=== PATIENT | male | born 1950 | race Caucasian/White ===

== ENCOUNTER → 2019-02-06 | Outpatient (CLI) | payer MEDICARE ==
[~2019-02-06] MED LIST: Cyclobenzaprine5 MG PO; IBUP600 PO; Norco 5-325 Ta1 EACH PO
[2019-02-06 19:29] LABS: BASOPHILS ABSOLUTE AUTO 0.07 K/mm3 (0.00-0.23); BASOPHILS PERCENT AUTO 1 % (0-2); EOSINOPHILS ABSOLUTE AUTO 0.28 K/mm3 (0.00-0.68); EOSINOPHILS PERCENT AUTO 2 % (0-6); Hemoglobin 15.7 g/dL (13.5-17.5); IMMATURE GRAN ABSOLUTE AUTO 0.05 K/mm3 (0.00-0.10); IMMATURE GRAN PERCENT AUTO 0 % (0-1); LYMPHOCYTES PERCENT AUTO 16 % (21-46); MONOCYTES ABSOLUTE AUTO 1.26 K/mm3 (0.16-1.47); MONOCYTES PERCENT AUTO 9 % (4-13); Mean Corpuscular HGB 32.3 pg (26.0-34.0); Mean Corpuscular HGB Conc 33.4 g/dL (31.5-36.5); Mean Corpuscular Volume 97 fL (80-100); Mean Platelet Volume 12.2 fL (9.1-12.4); NEUTROPHILS PERCENT AUTO 72 % (41-73); Platelet Count 306 K/mm3 (150-400); RDW Coefficient Variation 13.3 % (11.7-14.2); RDW Standard Deviation 47.7 fL (35.1-46.3); Red Blood Cell Count 4.86 M/mm3 (4.30-5.90); White Blood Cell Count 13.96 K/mm3 (4.00-11.30)
[2019-02-06 19:40] LABS: Alanine Aminotransfer (ALT/SGP 30 U/L (12-78); Albumin, Blood 3.4 g/dL (3.4-5.0); Albumin/Globulin Ratio 0.6 (0.8-1.8); Alk Phos 99 U/L (50-136); Anion Gap 7 mmol/L (6-16); Aspartate Aminotrans (AST/SGOT 32 U/L (12-37); Bilirubin, Total 0.5 mg/dL (0.1-1.0); Blood Urea Nitrogen 20 mg/dL (8-24); Bun/Creatinine Ratio 23.6 (12.0-20.0); CO2, Blood 24 mmol/L (21-32); Calcium, Blood 9.1 mg/dL (8.5-10.1); Chloride, Blood 107 mmol/L (98-108); Creatinine, Blood 0.85 mg/dL (0.60-1.20); Globulin, Blood 5.4 g/dL (2.2-4.0); Glomerular Filtration Rate >60 (60-); Glucose, Blood 104 mg/dL (70-99); Sodium, Blood 138 mmol/L (136-145); Total Protein, Blood 8.8 g/dL (6.4-8.2); Troponin I <0.015 ng/mL (0.000-0.040)
== END | disposition home or self-care (01) ==
LOC: LAB 18:17 → LAB SHORT 18:17
PROVIDERS: Nurse Practitioner
DX: J44.1 Chronic obstructive pulmonary disease with (acute) exacerbation (principal); R06.09 Other forms of dyspnea; R07.9 Chest pain, unspecified
CPT/HCPCS: 80053; 84484; 85025; 85379

== ENCOUNTER 2019-03-16 21:35 | Inpatient (IN) | payer MEDICARE ==
[~2019-03-16] VITALS: Ht 193 cm; Wt 61.2 kg
[2019-03-16 22:06] LABS: BASOPHILS ABSOLUTE AUTO 0.09 K/mm3 (0.00-0.23); BASOPHILS PERCENT AUTO 1 % (0-2); EOSINOPHILS ABSOLUTE AUTO 0.11 K/mm3 (0.00-0.68); EOSINOPHILS PERCENT AUTO 1 % (0-6); Hematocrit 46.3 % (37.0-53.0); Hemoglobin 14.9 g/dL (13.5-17.5); IMMATURE GRAN ABSOLUTE AUTO 0.08 K/mm3 (0.00-0.10); IMMATURE GRAN PERCENT AUTO 1 % (0-1); LYMPHOCYTES ABSOLUTE AUTO 3.36 K/mm3 (0.84-5.20); LYMPHOCYTES PERCENT AUTO 24 % (21-46); MONOCYTES PERCENT AUTO 9 % (4-13); Mean Corpuscular HGB 31.6 pg (26.0-34.0); Mean Corpuscular HGB Conc 32.2 g/dL (31.5-36.5); Mean Corpuscular Volume 98 fL (80-100); NEUTROPHILS PERCENT AUTO 65 % (41-73); RDW Coefficient Variation 14.4 % (11.7-14.2); RDW Standard Deviation 52.2 fL (35.1-46.3); Red Blood Cell Count 4.72 M/mm3 (4.30-5.90); White Blood Cell Count 13.94 K/mm3 (4.00-11.30)
[2019-03-16 22:07] LABS: Platelet Count 311 K/mm3 (150-400)
[2019-03-16 22:14] LABS: Alanine Aminotransfer (ALT/SGP 57 U/L (12-78); Albumin, Blood 3.5 g/dL (3.4-5.0); Albumin/Globulin Ratio 0.7 (0.8-1.8); Alk Phos 97 U/L (50-136); Anion Gap 9 mmol/L (6-16); Aspartate Aminotrans (AST/SGOT 61 U/L (12-37); Bilirubin, Total 0.4 mg/dL (0.1-1.0); Blood Urea Nitrogen 18 mg/dL (8-24); Bun/Creatinine Ratio 20.2 (12.0-20.0); CO2, Blood 19 mmol/L (21-32); Calcium, Blood 8.1 mg/dL (8.5-10.1); Chloride, Blood 109 mmol/L (98-108); Creatinine, Blood 0.89 mg/dL (0.60-1.20); Glomerular Filtration Rate >60 (60-); Glucose, Blood 98 mg/dL (70-99); Potassium, Blood 4.5 mmol/L (3.5-5.5); Sodium, Blood 137 mmol/L (136-145); Total Protein, Blood 8.5 g/dL (6.4-8.2)
[2019-03-16 22:19] LABS: Ethanol (Alcohol), Blood, Med 304 mg/dL
[2019-03-16 22:26] LABS: Source, Urine Catheter
[2019-03-16 22:30] LABS: Appearance, Urine Clear (Clear); Bilirubin, Urine Neg (Neg); Blood, Urine 2+ (Neg); Color, Urine Yellow (P-Yellow); Glucose Qualitative, Urine Neg (Neg); Ketones, Urine Neg (Neg); Leukocyte Esterase, Urine Neg (Neg); Nitrite, Urine Neg (Neg); Protein, Urine Neg (Neg); Urobilinogen, Urine NORM (Normal)
[2019-03-16 22:35] LABS: Bacteria Not Seen /hpf; Red Blood Cells, Urine 0-2 /hpf (0-2); Squamous Epithelial Cells Not Seen /hpf (Few); White Blood Cells, Urine 0-2 /hpf (0-5)
[2019-03-16 22:43] LABS: International Normalized Ratio 0.96; Prothrombin Time Results 10.3 Sec (9.7-11.5)
[2019-03-16 22:52] LABS: U Amphetamine Screen Not Detected; U Barbituate Screen Not Detected; U Benzodiazapine Screen Not Detected; U Buprenorphine Screen Not Detected; U Cannabinoids Screen DETECTED; U Cocaine Screen Not Detected; U Methadone Screen Not Detected; U Methamphetamine Screen Not Detected; U Opiates Screen Not Detected; U Oxycodone Screen Not Detected; U Propoxyphene Screen Not Detected
--- NOTE | 2019-03-17 03:23 | NUR ---
PT TO ICU 10 FROM ED. PT ARRIVED INTUBATED, VENT SETTINGS AC 16/450/5/40%, SEDATED ON 10 MCG/KG/MIN PROPOFOL. NS@100ML/HR ON STANDBY WHILE BANANA BAG INFUSING. PT PLACED IN BILATERAL UPPER SOFT WRIST RESTRAINTS TO PREVENT ACCIDENTAL SELF-EXTUBATION. PT WITHDRAWS FROM PAINFUL STIMULI, PT FAILS TO FOLLOW COMMANDS. ATTEMPTS TO SIT UP IN BED AND PULLS ON RESTRAINTS WITH EYES CLOSED. PT HYPOTHERMIC ON ARRIVAL WITH CORE TEMP 95 DEGREES (TEMP WHITLEY IN PLACE), MILEY HUGGER AND WARM BLANKETS PLACED ON PT-CURRENT TEMP 97 DEGREES. PT HYPOTENSIVE WITH MAP IN MID TO LOW 50'S, CALL TO DR. SANCHEZ TO START LEVOPHED THROUGH PERIPHERAL IV AT LOW DOSE. DR. SANCHEZ TO SEE PT WITHIN HOUR WITH POSSIBILITY OF PLACING CENTRAL LINE IF NEEDED. PT HAS ABRASION ON FACE AND RIGHT KNEE D/T FALL. SEE PICTURES IN CHART. SEE FULL ADMISSION ASSESSMENT
[2019-03-17 03:33] LABS: BASOPHILS ABSOLUTE AUTO 0.04 K/mm3 (0.00-0.23); BASOPHILS PERCENT AUTO 0 % (0-2); EOSINOPHILS ABSOLUTE AUTO 0.14 K/mm3 (0.00-0.68); EOSINOPHILS PERCENT AUTO 1 % (0-6); Hematocrit 39.3 % (37.0-53.0); Hemoglobin 12.6 g/dL (13.5-17.5); IMMATURE GRAN ABSOLUTE AUTO 0.06 K/mm3 (0.00-0.10); IMMATURE GRAN PERCENT AUTO 1 % (0-1); LYMPHOCYTES ABSOLUTE AUTO 3.08 K/mm3 (0.84-5.20); LYMPHOCYTES PERCENT AUTO 26 % (21-46); MONOCYTES ABSOLUTE AUTO 1.05 K/mm3 (0.16-1.47); MONOCYTES PERCENT AUTO 9 % (4-13); Mean Corpuscular HGB 31.6 pg (26.0-34.0); Mean Corpuscular HGB Conc 32.1 g/dL (31.5-36.5); Mean Corpuscular Volume 99 fL (80-100); Mean Platelet Volume 10.7 fL (9.1-12.4); NEUTROPHILS ABSOLUTE AUTO 7.58 K/mm3 (1.96-9.15); NEUTROPHILS PERCENT AUTO 63 % (41-73); Platelet Count 319 K/mm3 (150-400); RDW Coefficient Variation 14.4 % (11.7-14.2); RDW Standard Deviation 53.2 fL (35.1-46.3); Red Blood Cell Count 3.99 M/mm3 (4.30-5.90); White Blood Cell Count 11.95 K/mm3 (4.00-11.30)
[2019-03-17 03:54] LABS: Alanine Aminotransfer (ALT/SGP 43 U/L (12-78); Albumin, Blood 2.7 g/dL (3.4-5.0); Albumin/Globulin Ratio 0.7 (0.8-1.8); Alk Phos 79 U/L (50-136); Anion Gap 7 mmol/L (6-16); Aspartate Aminotrans (AST/SGOT 39 U/L (12-37); Bilirubin, Total 0.4 mg/dL (0.1-1.0); Blood Urea Nitrogen 17 mg/dL (8-24); Bun/Creatinine Ratio 17.8 (12.0-20.0); CO2, Blood 20 mmol/L (21-32); Calcium, Blood 7.3 mg/dL (8.5-10.1); Chloride, Blood 113 mmol/L (98-108); Creatinine, Blood 0.96 mg/dL (0.60-1.20); Globulin, Blood 3.9 g/dL (2.2-4.0); Glomerular Filtration Rate >60 (60-); Glucose, Blood 139 mg/dL (70-99); Potassium, Blood 3.9 mmol/L (3.5-5.5); Sodium, Blood 140 mmol/L (136-145); Total Protein, Blood 6.6 g/dL (6.4-8.2)
--- NOTE | 2019-03-17 06:31 | NUR ---
SHIFT SUMMARY PT REMAINS INTUBATED AND SEDATED. VENT SETTINGS 16/450/5/35%. PROPOFOL @ 40 MCG/KG/MIN. CENTRAL LINE PLACED TO START LEVOPHED D/T HYPOTENSION. LEVOPHED CURRENTLY INFUSING @7MCG/MIN. PT RCV'D 3LNS BOLUS D/T HYPOTENSION. PT SITS UPRIGHT IN BED AND THRASHES HEAD BACK AND FORTH AND PULLS VIOLENTLY ON RESTRAINTS. WHEN INADEQUATELY SEDATED. PT DOES NOT OPEN EYES OR FOLLOW COMMANDS. CURRENT TEMPERATURE 98.6, MILEY HUGGER REMOVED. [facility].
--- NOTE | 2019-03-17 08:00 | NUR ---
CARE OF PT ASSUMED: BEDSIDE REPORT TAKEN AT 0700. PT SEDATED ON PROPOFOL FOR MECH VENT. PT AWAKENS TO PAIN/NOXIOUS STIMULI; SITS STRAIGHT UP IN BED, PULLING ON RESTRAINTS HARD, DOES NOT FOLLOW DIRECTIONS OR TRACK W EYES. LEVOPHED AT 8MCG. PT CALM AND SLEEPING AFTER FENT 5OMCG IV.
--- NOTE | 2019-03-17 11:00 | NUR ---
DR DÍAZ IN AT 0900, FULL REPORT GIVEN. PRECEDEX GTT ORDERED AND TITRATED UP TO 0.7MCG. PROPOFOL GTT DECREASED TO 40MCG. LEVOPHED DECREASED TO 6MCG.
--- NOTE | 2019-03-17 13:00 | NUR ---
PT PLACED ON SPONT BREATHING TRIAL/PS OF [address] DÍAZ. PT TOLERATING WELL.
--- NOTE | 2019-03-17 14:00 | NUR ---
PROPOFOL PLACED ON STANDBY AND OG PLACED TO LIS IN PREPARATION FOR POSSIBLE EXTUBATION.
--- NOTE | 2019-03-17 15:15 | NUR ---
PT EXTUBATED AT 1515. PRECEDEX GTT OFF, LEVOPHED DECREASED TO 4MCG. PT AWAKE, ALERT, AND COOPERATIVE. RESTRAINTS DC'D AT THIS TIME. 3L O2 VIA N/C PLACED ON PT. SATS >93%. PT HAS VAGUE COMPLAINTS OF PAIN WHEN ASKED.
--- NOTE | 2019-03-17 19:39 | NUR ---
PT HAS DONE WELL OVERALL THIS SHIFT. PT PASSED BEDSIDE SWALLOW EVAL AT 1715 AND WAS GIVEN REGULAR ADULT DINNER TRAY WHICH HE DID WELL WITH. O2 WAS TAKEN OFF AT 1700, SATS REMAIN >92% ON RA. PT C/O NECK PAIN AND GENERALIZED ACHES D/T FALL. PT STATED THAT FENTANYL "SORTA" WORKED BUT DIDNT LAST LONG". PT REQUEST HIS REGULAR MEDS TO BE STARTED/ORDERED; THIS WAS PASSED ALONG TO ONCOMING RN. PT REQUESTED HIS MONEY FROM THE [facility] SAFE STATING TO ME, "THERE WAS JUST OVER 600 DOLLARS IN MY WALLET". SECURITY BROUGHT PT'S DO TO HIM WHICH PT PLACED IN HIS WALLET (AT BEDSIDE). PT WAS OFFERED THE OPTION OF KEEPING HIS DO IN SAFE UNTIL DISCHARGE; PT DECLINED THIS OFFER. LEVOPHED DECREASED TO 2MCG AT 1800.
[2019-03-17] MEDS ORDERED: TIOT18 INH (21:26)
[2019-03-17] MEDS ORDERED: BUDE6HFA INH (21:26)
[2019-03-17] MEDS ORDERED: ALBU3IS INH (21:27)
[2019-03-17] MEDS ORDERED: COMBIVENT RESPIM4 GM INH (21:28)
--- NOTE | 2019-03-17 23:09 | NUR ---
ASSUMED CARE OF PT, REPORT RCV'D FROM AYSE MANZO. PT ALERT AND ORIENTED X4, PLEASANT AND COOPERATIVE WITH CARE. WHITLEY REMOVED PER PT REQUEST, PT AMBULATES TO THE TOILET WITH SBA WITH NO DIFFICULTY. LEVOPHED PLACED ON STANDBY AT 1999, MAP REMAINS GREATER THAN 65. PT REPORTS WHEEZING AND REQUESTING HOME MEDS. HOME MEDS RESTARTED, RESPIRATORY THERAPY TO ROOM TO ADMINISTER BREATHING TX. PT ON 3L NC PRN. SEE FULL SHIFT SUMMARY
[2019-03-18 05:57] LABS: BASOPHILS ABSOLUTE AUTO 0.09 K/mm3 (0.00-0.23); BASOPHILS PERCENT AUTO 1 % (0-2); EOSINOPHILS ABSOLUTE AUTO 0.35 K/mm3 (0.00-0.68); EOSINOPHILS PERCENT AUTO 3 % (0-6); Hematocrit 38.8 % (37.0-53.0); Hemoglobin 12.4 g/dL (13.5-17.5); IMMATURE GRAN ABSOLUTE AUTO 0.06 K/mm3 (0.00-0.10); IMMATURE GRAN PERCENT AUTO 1 % (0-1); LYMPHOCYTES ABSOLUTE AUTO 3.14 K/mm3 (0.84-5.20); LYMPHOCYTES PERCENT AUTO 24 % (21-46); MONOCYTES ABSOLUTE AUTO 1.65 K/mm3 (0.16-1.47); MONOCYTES PERCENT AUTO 13 % (4-13); Mean Corpuscular HGB 31.6 pg (26.0-34.0); Mean Corpuscular Volume 99 fL (80-100); Mean Platelet Volume 10.6 fL (9.1-12.4); NEUTROPHILS ABSOLUTE AUTO 7.85 K/mm3 (1.96-9.15); NEUTROPHILS PERCENT AUTO 60 % (41-73); Platelet Count 242 K/mm3 (150-400); RDW Coefficient Variation 14.5 % (11.7-14.2); Red Blood Cell Count 3.93 M/mm3 (4.30-5.90); White Blood Cell Count 13.14 K/mm3 (4.00-11.30)
[2019-03-18 06:06] LABS: Anion Gap 5 mmol/L (6-16); Blood Urea Nitrogen 12 mg/dL (8-24); Bun/Creatinine Ratio 14.7 (12.0-20.0); CO2, Blood 23 mmol/L (21-32); Calcium, Blood 7.7 mg/dL (8.5-10.1); Chloride, Blood 112 mmol/L (98-108); Creatinine, Blood 0.82 mg/dL (0.60-1.20); Glomerular Filtration Rate >60 (60-); Glucose, Blood 78 mg/dL (70-99); Magnesium, Blood 1.9 mg/dL (1.6-2.4); Phosphorus, Blood 2.2 mg/dL (2.5-4.9); Potassium, Blood 3.9 mmol/L (3.5-5.5); Sodium, Blood 140 mmol/L (136-145)
--- NOTE | 2019-03-18 06:18 | NUR ---
SHIFT SUMMARY LEVOPHED PLACED ON STANDBY AT 1999, BLOOD PRESSURE REMAINED STABLE WITH MAP>65 OVERNIGHT. PT ABLE TO INDEPENDENTLY AMBULATE TO TOILET WITH NO DIFFICULTY. WHITLEY REMOVED-PT VOIDING WITHOUT ISSUE. PT MEDICATED TWICE FOR PAIN RELATED TO HIS FALL. TMAX 100.9, CURRENT TEMP 98.9. PT'S HOME MEDS RESTARTED. RESPIRATORY CARE ADMINISTERING BREATHING TX NEEDED. PT USES 3L NC PRN. VSS T/O SHIFT. WILL REPORT TO DAYSHIFT NURSE.
--- NOTE | 2019-03-18 07:28 | NUR ---
ASSUMED CARE PT. ALERT AND ORIENTED THIS AM. PT. VSS THIS AM. PT. OOB WITH STAND BY ASSIST FOR LINES. PT. REMAINS OFF LEVOPHED T/O NIGHT. PT. C/O PAIN TO FACE,07/15, NOT TIME FOR FENTANYL YET, TYLENOL OFFERED PT REFUESED TYLENOL WILL REQUEST FOR ORAL PAIN MEDICATION FROM UPON ARRIVAL. IRASEMAN. BED IN LOW POSITION, CALL LIGHT IN REACH.
--- NOTE | 2019-03-18 10:47 | NUR ---
REPORT GIVEN TO MEDICAL FLOOR RN, PT VSS UPON TRANFER. ALL BELONGINGS TAKEN WITH PT.
--- NOTE | 2019-03-18 11:30 | NUR ---
TRANSFER PT ARRIVED TO THE MEDICAL FLOOR FROM THE ICU, A/OX3, UP IND TO THE BED, REPORT WAS TAKEN FROM MARIO RN IN THE ICU, I AGREE WITH HER ASSESSMENT, THE PT WAS ORIENTED TO THE ROOM LAYOUT AND CALL SYSTEM, CALL LIGHT IN REACH, O2 APPLIED PER THE PTS REQUEST
--- NOTE | 2019-03-18 13:33 | NUR ---
PERMISSION FOR CARE: PT GAVE PERMISSION TO THIS STUDENT NURSE TO PROVIDE CARE TODAY
--- NOTE | 2019-03-18 16:09 | NUR ---
PT IS A/OX3, PLEASANT AND COOPERATIVE, THE PT WAS A TRANFER FROM THE ICU TODAY, PT IS UP INDEPENDANTLY IN HIS ROOM, THE WAS MEDICATED FOR PAIN, PT APPEARS TO BE BREATHING EASILY ON O2 AT THIS TIME AT REST, CALL LIGHT IN REACH, WILL CONTINUE TO MONITOR AND ASSESS FOR CHANGES
--- NOTE | 2019-03-19 04:29 | NUR ---
SHIFT SUMMARY: PATIENT IS A&OX4, REPORTING GENERALIZED PAIN 8/10. MEDICATED TWICE THIS SHIT WITH OXYCODONE WITH GOOD EFFECT. PATIENT IS INDEPENDANT IN THE ROOM, VS ARE STABLE.
[2019-03-19 04:44] LABS: BASOPHILS ABSOLUTE AUTO 0.04 K/mm3 (0.00-0.23); BASOPHILS PERCENT AUTO 0 % (0-2); EOSINOPHILS ABSOLUTE AUTO 0.32 K/mm3 (0.00-0.68); EOSINOPHILS PERCENT AUTO 4 % (0-6); Hematocrit 37.9 % (37.0-53.0); Hemoglobin 12.2 g/dL (13.5-17.5); IMMATURE GRAN ABSOLUTE AUTO 0.02 K/mm3 (0.00-0.10); IMMATURE GRAN PERCENT AUTO 0 % (0-1); LYMPHOCYTES ABSOLUTE AUTO 2.25 K/mm3 (0.84-5.20); LYMPHOCYTES PERCENT AUTO 25 % (21-46); MONOCYTES ABSOLUTE AUTO 1.24 K/mm3 (0.16-1.47); MONOCYTES PERCENT AUTO 14 % (4-13); Mean Corpuscular HGB 31.4 pg (26.0-34.0); Mean Corpuscular HGB Conc 32.2 g/dL (31.5-36.5); Mean Corpuscular Volume 98 fL (80-100); Mean Platelet Volume 11.2 fL (9.1-12.4); NEUTROPHILS ABSOLUTE AUTO 5.11 K/mm3 (1.96-9.15); NEUTROPHILS PERCENT AUTO 57 % (41-73); Platelet Count 219 K/mm3 (150-400); RDW Coefficient Variation 14.2 % (11.7-14.2); Red Blood Cell Count 3.88 M/mm3 (4.30-5.90); White Blood Cell Count 8.98 K/mm3 (4.00-11.30)
[2019-03-19 05:02] LABS: Anion Gap 5 mmol/L (6-16); Blood Urea Nitrogen 17 mg/dL (8-24); Bun/Creatinine Ratio 18.5 (12.0-20.0); CO2, Blood 23 mmol/L (21-32); Calcium, Blood 7.8 mg/dL (8.5-10.1); Chloride, Blood 111 mmol/L (98-108); Creatinine, Blood 0.92 mg/dL (0.60-1.20); Glomerular Filtration Rate >60 (60-); Glucose, Blood 91 mg/dL (70-99); Phosphorus, Blood 3.3 mg/dL (2.5-4.9); Potassium, Blood 4.2 mmol/L (3.5-5.5); Sodium, Blood 139 mmol/L (136-145)
--- NOTE | 2019-03-19 16:35 | NUR ---
SHIFT SUMMARY THE PATIENT HAD AN UNEVENTFUL SHIFT. VITALS HAVE BEEN STABLE. REQUESTED PAIN MEDICATION ONCE THIS SHIFT WITHOUT MUCH EFFECTIVENESS. PATIENT IS ALERT AND ORIENTED AND ABLE TO CALL STAFF APPROPRIATELY FOR NEEDS. INDEPENDENT IN ROOM. NO ACUTE CHANGES TO REPORT ON AT THIS TIME. WILL CONTINUE TO MONITOR AND PROVIDE CARE AT THIS TIME.
--- NOTE | 2019-03-20 05:53 | NUR ---
SHIFT SUMMARY: PATIENT IS A&OX4, VS ARE STABLE, NO SOB OBSERVED OR REPORTED. SATS ARE 96% ON 1L AMD 91% ON RA. ABRASION UNDER RIGHT EYE APPEARS TO POSSIBLY HAVE A HEMATOMA FORMING, NO VISION CHANGES REPORTED. REPORTING PAIN IN THIS AREA 6/10. PATIENT IS INDEPENDANT TO THE BATHROOM WITH A STEADY GAIT.
--- NOTE | 2019-03-20 16:17 | NUR ---
SHIFT SUMMARY PATIENT HAS HAD AN UNEVENTFUL DAY. LUNGS SOUND RHONCHI T/O HOWEVER WO OTHER CHANGES NOTED. PATIENT REQUESTED PAIN MEDICATION ONCE THIS MORNING FOR HIS BACK WITH MODERATE EFFECTIVENESS. VITALS ARE STABLE. PATIENT CONTINUES TO BE INDEPENDANT. WILL CONTINUE TO MONITOR AND PROVIDE CARE NEEDED.
--- NOTE | 2019-03-21 03:23 | NUR ---
SHIFT SUMMARY PATIENT HAD NO ACUTE CHANGES OBSERVED. AXOX 3 AND INDEPENDENT IN THE ROOM. NO IV ACCESS. ON 2L O2 NC. VSS/AFBERILE. DENIES PAIN, SOB, AND N/V. REPORTED BACK PAIN AND RECEIVED OXYCODONE PER EMAR. COOPERATIVE WITH CARE. TAKES MEDICATION WHOLE WITH WATER. CALL LIGHT IN REACH. BED IN LOWEST POSITION. WILL CONTINUE TO MONITOR UNTIL DAY SHIFT NURSE ASSUMES CARE.
[2019-03-21] MEDS ORDERED: ACET325 PO (09:18)
[2019-03-21] MEDS ORDERED: AZIT500 PO (09:19)
[2019-03-21] MEDS ORDERED: GUAI600T33 PO (09:20)
--- NOTE | 2019-03-21 10:59 | NUR ---
DISCHARGE INSTRUCTIONS REVIEWED WITH PATIENT, PRINTED INSTRUCTIONS GIVEN TO PATIENT WELL. EDUCATIONAL MATERIAL PROVIDED REGARDING COPD, ALCOHOL INTOXICATION, MUCINEX AND ZITHROMAX. ALL QUESTIONS ANSWERED. PATIENT CALLED DAUGHTER FOR A RIDE HOME. DTR TO PICK PATIENT UP IN ABOUT AN HOUR.
--- NOTE | 2019-03-21 12:31 | NUR ---
PATIENT DISCHARGED HOME WITH HIS DAUGHTER AT 1228.
== END 2019-03-21 12:30 | disposition home or self-care (01) | DRG 917 ==
LOC: ER 21:35 → ICUW 03-17 00:02 → MEDS 03-17 00:02 → ICUW 03-17 01:11 → MEDS 03-18 10:51 → ENPENDDIS 03-21 09:54 → MEDS 03-21 12:30
PROVIDERS: Emergency Medicine; Internal Medicine; Internal Medicine Critical Care Medicine; ADMIT Internal Medicine
PROC: 0BH17EZ Insertion of Endotracheal Airway into Trachea, Via Natural or Artificial Opening (ICD-10-PCS; principal; 2019-03-17)
PROC: 5A1935Z Respiratory Ventilation, Less than 24 Consecutive Hours (ICD-10-PCS; 2019-03-17)
PROC: 02HV33Z Insertion of Infusion Device into Superior Vena Cava, Percutaneous Approach (ICD-10-PCS; 2019-03-17)
DX: T51.91XA Toxic effect of unspecified alcohol, accidental (unintentional), initial encounter (principal); G92 Toxic encephalopathy; J96.20 Acute and chronic respiratory failure, unspecified whether with hypoxia or hypercapnia; J69.0 Pneumonitis due to inhalation of food and vomit; I95.9 Hypotension, unspecified; J44.9 Chronic obstructive pulmonary disease, unspecified; F10.229 Alcohol dependence with intoxication, unspecified; Y90.8 Blood alcohol level of 240 mg/100 ml or more; E83.39 Other disorders of phosphorus metabolism; F17.210 Nicotine dependence, cigarettes, uncomplicated; W19.XXXA Unspecified fall, initial encounter; I10 Essential (primary) hypertension; S00.83XA Contusion of other part of head, initial encounter; E86.0 Dehydration
CPT/HCPCS: 31500; 31720; 36415; 36556; 51702; 70450; 71045; 71046; 72125; 80048; 80053; 81001; 83690; 83735; 83880; 84100; 85025; 85610; 90686; 93005; 93010; 94002; 94640; 94667; 94668; 94760; 96361-59; 96374-59; 96375; 96375-59; 99291-25; 99292; C1751; C9113; G0480; J1650; J2060; J2250; J2704; J3010; J3411; J3475; J7030; J7042; J7060